=== PATIENT | female | born 1970 | race Caucasian/White ===

== ENCOUNTER 2020-09-15 14:40 | Inpatient (IN) | payer OTHER ==
[~2020-09-15] VITALS: Ht 160 cm; Wt 62.7 kg
[~2020-09-15 14:40] MED LIST: ATARAX25 MG PO; DIAZEPAM 5MG TAB5 MG PO; PROZAC20 MG PO; SYNTHROID50 MC1 PO
[2020-09-15 15:38] LABS: BASOPHIL 0.4 % (0-2); EOSINOPHIL 0.2 % (0-5); HCT 44.5 % (37.0-47.0); LYMPHOCYTE 7.8 % (15-48); MCH 32.1 pg (25.0-31.0); MCV 89.2 fL (78.0-100.0); MONOCYTE 6.4 % (0-12); MPV 10.4 fL (6.0-9.5); NEUTROPHIL 84.9 % (41-80); NRBC 0; PLT 283 K/uL (150-400); RBC 4.99 M/uL (4.20-5.40); RDW 13.2 % (11.5-14.0); WBC 10.6 K/uL (4.0-10.5)
[2020-09-15 15:38] LABS: BILIRUBIN NEGATIVE (NEGATIVE); BLOOD NEGATIVE Ery/uL (NEGATIVE); CLARITY CLEAR (CLEAR); COLOR YELLOW (YELLOW); GLUCOSE (U) 3+ mg/dL (NORMAL); LEUKOCYTES NEGATIVE Leu/uL (NEGATIVE); NITRITE NEGATIVE (NEGATIVE); PROTEIN NEGATIVE (NEGATIVE); UROBILINOGEN 0.2 mg/dL (0.2-1.0)
[2020-09-15 15:47] LABS: ALBUMIN 4.3 g/dL (3.4-5.0); ALKALINE PHOSHATASE 159 U/L (46-116); ALT 35 U/L (14-59); AMYLASE 287 U/L (25-115); AST 26 U/L (15-37); BILIRUBIN - TOTAL 1.3 mg/dL (0.2-1.0); BUN 11 mg/dL (7-18); BUN/CREAT RATIO (CALC) 22.9 RATIO; CHLORIDE 89 mmol/L (98-107); CO2 (BICARBONATE) 21 mmol/L (21-32); CREATININE 0.48 mg/dL (0.51-0.95); GLOBULIN (CALCULATION) 4.2 g/dL; GLUCOSE 425 mg/dL (74-106); LIPASE >2250 U/L (73-393); POTASSIUM 4.3 mmol/L (3.5-5.1); TOTAL PROTEIN 8.5 g/dL (6.4-8.2)
[2020-09-15 19:38] LABS: CORONAVIRUS 2019 SARS-COV-2 NEGATIVE (NEGATIVE); INFLUENZA A NAA NEGATIVE (NEGATIVE)
[2020-09-15] MEDS ORDERED: PROZAC20 MG PO (20:57)
[2020-09-15] MEDS ORDERED: SYNTHROID50 MCG PO (20:58)
[2020-09-15] MEDS ORDERED: MVI PO (20:59)
[2020-09-15] MEDS ORDERED: FOLIC ACID1 MG PO (21:00)
[2020-09-15] MEDS ORDERED: VITAMIN B12 PO (21:00)
[2020-09-15] MEDS ORDERED: APPLE CIDER VINEGAR PO (21:01)
[2020-09-16 00:14] LABS: CHOLESTEROL 291 mg/dL (<200); HDL 43 mg/dL (40-60); LDL - DIRECT 228 mg/dL (<100); TRIGLYCERIDES 189 mg/dL (<150)
[2020-09-16 05:46] LABS: BASOPHIL 0.4 % (0-2); EOSINOPHIL 3.7 % (0-5); HCT 36.5 % (37.0-47.0); LYMPHOCYTE 22.2 % (15-48); MCH 32.3 pg (25.0-31.0); MCHC 35.6 g/dL (32.0-36.0); MCV 90.8 fL (78.0-100.0); MONOCYTE 11.4 % (0-12); MPV 10.2 fL (6.0-9.5); NEUTROPHIL 61.9 % (41-80); NRBC 0; PLT 165 K/uL (150-400); RBC 4.02 M/uL (4.20-5.40); RDW 13.3 % (11.5-14.0); WBC 5.2 K/uL (4.0-10.5)
[2020-09-16 06:05] LABS: ALBUMIN 3.2 g/dL (3.4-5.0); BILIRUBIN - TOTAL 0.9 mg/dL (0.2-1.0); BUN/CREAT RATIO (CALC) 26.2 RATIO; CREATININE 0.42 mg/dL (0.51-0.95); GLOBULIN (CALCULATION) 3.3 g/dL; POTASSIUM 3.9 mmol/L (3.5-5.1)
[2020-09-16 06:07] LABS: TOTAL PROTEIN 6.5 g/dL (6.4-8.2)
[2020-09-16 07:37] LABS: AMYLASE 156 U/L (25-115); LIPASE 1000 U/L (73-393)
[2020-09-16] MEDS ORDERED: LIPITOR20 MG PO (17:18)
[2020-09-16] MEDS ORDERED: METFORMIN HCL500 MG PO (17:18)
== END 2020-09-16 18:50 | disposition home or self-care (01) | DRG 439 ==
LOC: FER 14:40 → FMS 19:45
PROVIDERS: Emergency Medicine; Nurse Practitioner; Nurse Practitioner Family; ADMIT Hospitalist
DX: K85.20 Alcohol induced acute pancreatitis without necrosis or infection (principal); E87.1 Hypo-osmolality and hyponatremia; E11.65 Type 2 diabetes mellitus with hyperglycemia; F41.1 Generalized anxiety disorder; F41.0 Panic disorder [episodic paroxysmal anxiety]; F43.10 Post-traumatic stress disorder, unspecified; E03.9 Hypothyroidism, unspecified; F10.11 Alcohol abuse, in remission; Z20.822 Contact with and (suspected) exposure to COVID-19; E86.0 Dehydration; F32.9 Major depressive disorder, single episode, unspecified; F17.210 Nicotine dependence, cigarettes, uncomplicated; Z98.51 Tubal ligation status; Z88.0 Allergy status to penicillin; Z79.899 Other long term (current) drug therapy
CPT/HCPCS: 36415; 80053; 80061; 81003; 82150; 82962; 83036; 83690; 85025; G0480; J1170; J1650; J2405; J3411; J3475; J7030; Q9967; U0002

== ENCOUNTER 2020-12-10 13:38 | Inpatient (IN) | payer OTHER ==
[~2020-12-10] VITALS: Ht 160 cm; Wt 57.8 kg
[~2020-12-10 13:38] MED LIST changes: +APPLE CIDER VINEGAR PO; +FOLIC ACID1 MG PO; +LIPITOR20 MG PO; +METFORMIN HCL500 MG PO; +MVI PO; +SYNTHROID50 MCG PO; +VITAMIN B12 PO
[2020-12-10 14:17] LABS: BASOPHIL 0.2 % (0-2); EOSINOPHIL 0 % (0-5); HCT 42.3 % (37.0-47.0); HGB 15.1 g/dl (12.5-16.0); LYMPHOCYTE 10.2 % (15-48); MCH 32.1 pg (25.0-31.0); MCHC 35.7 g/dL (32.0-36.0); MCV 89.8 fL (78.0-100.0); MONOCYTE 10.6 % (0-12); MPV 9.2 fL (6.0-9.5); NEUTROPHIL 78.8 % (41-80); NRBC 0; PLT 167 K/uL (150-400); RBC 4.71 M/uL (4.20-5.40); RDW 12.3 % (11.5-14.0)
[2020-12-10 14:18] LABS: BILIRUBIN 1+ mg/dL (NEGATIVE); BLOOD 2+ Ery/uL (NEGATIVE); CLARITY CLEAR (CLEAR); COLOR YELLOW (YELLOW); GLUCOSE (U) NORMAL (NORMAL); LEUKOCYTES NEGATIVE Leu/uL (NEGATIVE); NITRITE NEGATIVE (NEGATIVE); PROTEIN 3+ mg/dL (NEGATIVE); SPECIFIC GRAVITY >=1.030 (1.001-1.030); UROBILINOGEN 0.2 mg/dL (0.2-1.0)
[2020-12-10 14:23] LABS: AMPHETAMINES NEGATIVE (NEGATIVE); BARBITURATES NEGATIVE (NEGATIVE); ECSTASY (MDMA) NEGATIVE (NEGATIVE); MARIJUANA (THC) NEGATIVE (NEGATIVE); METHADONE NEGATIVE (NEGATIVE); OPIATES NEGATIVE (NEGATIVE); OXYCODONE NEGATIVE (NEGATIVE)
[2020-12-10 14:33] LABS: URINARY WBC RARE
[2020-12-10 14:53] LABS: ALBUMIN 4.4 g/dL (3.4-5.0); BILIRUBIN - TOTAL 1.4 mg/dL (0.2-1.0); CREATININE 0.48 mg/dL (0.51-0.95); GLOBULIN (CALCULATION) 4.5 g/dL; POTASSIUM 3.7 mmol/L (3.5-5.1); TOTAL PROTEIN 8.9 g/dL (6.4-8.2)
[2020-12-10] MEDS ORDERED: METFORMIN HCL500 M1 PO (17:42)
[2020-12-10] MEDS ORDERED: FLUOXETINE HCL20 MG PO (17:44)
[2020-12-10] MEDS ORDERED: ATORVASTATIN CA20 MG PO (17:47)
[2020-12-10] MEDS ORDERED: FOLIC ACID1 MG PO ×2 (17:49→17:50)
[2020-12-11 06:04] LABS: HCT 35.6 % (37.0-47.0); HGB 12.7 g/dl (12.5-16.0); MCH 32.4 pg (25.0-31.0); MCHC 35.7 g/dL (32.0-36.0); MCV 90.8 fL (78.0-100.0); MPV 9.1 fL (6.0-9.5); RBC 3.92 M/uL (4.20-5.40); RDW 12.5 % (11.5-14.0); WBC 3.7 K/uL (4.0-10.5)
[2020-12-11 06:51] LABS: CREATININE 0.4 mg/dL (0.51-0.95); POTASSIUM 3.4 mmol/L (3.5-5.1)
--- NOTE | 2020-12-11 13:09 | NUR ---
RECEIVED REFERRAL REGARDING PT. ALCHOL CONSUMPTION. MET [facility] PT. SHE STATED THAT SHE CAN NOT DRINK FOR A LONG PERIOD OF TIME, BUT THEN SHE BECOMES ANXIOUS OR UPSET AND STARTS DRINKING AGAIN. SHE HAS BEEN IN GROUP COUNSELING AT [facility] WELL INDIVIDUAL COUNSELING AT [facility]. PT. IS CONSIDERING GOING BACK TO [facility] FOR COUNSELING. PT. DOES NOT LIKE AA. SHE HAS TWO GROWN CHILDREN. HER BOYFRIEND IS SUPPORTIVE. PT. IS EMPLOYED AT A [employer]. SHE STATES THAT SHE NEEDS TO WORK AND CANNOT GO INPATIENT. GAVE INFORMATION REGARDING COUNSELING RESOURCES AND TREATEMENT CENTERS.
[2020-12-12 06:04] LABS: BASOPHIL 0.5 % (0-2); EOSINOPHIL 2.4 % (0-5); HCT 32.6 % (37.0-47.0); HGB 11.9 g/dl (12.5-16.0); LYMPHOCYTE 30.3 % (15-48); MCH 32.7 pg (25.0-31.0); MCHC 36.5 g/dL (32.0-36.0); MCV 89.6 fL (78.0-100.0); MONOCYTE 15.6 % (0-12); MPV 9.8 fL (6.0-9.5); NEUTROPHIL 51.2 % (41-80); NRBC 0; RBC 3.64 M/uL (4.20-5.40); RDW 12.3 % (11.5-14.0); WBC 2.1 K/uL (4.0-10.5)
[2020-12-12 06:16] LABS: PLT 95 K/uL (150-400)
[2020-12-12 06:47] LABS: CREATININE 0.45 mg/dL (0.51-0.95); POTASSIUM 3.6 mmol/L (3.5-5.1)
[2020-12-12 06:48] LABS: ALBUMIN 2.9 g/dL (3.4-5.0); BILIRUBIN - TOTAL 0.8 mg/dL (0.2-1.0); GLOBULIN (CALCULATION) 3.5 g/dL; TOTAL PROTEIN 6.4 g/dL (6.4-8.2)
[2020-12-12 06:49] LABS: PHOSPHORUS 1.9 mg/dL (2.6-4.7)
[2020-12-12 06:50] LABS: MAGNESIUM 1.9 mg/dL (1.8-2.4)
== END 2020-12-12 14:45 | disposition home or self-care (01) | DRG 439 ==
LOC: FER 13:38 → FMS 15:06
PROVIDERS: Emergency Medicine; Internal Medicine; ADMIT Hospitalist
PROC: HZ2ZZZZ Detoxification Services for Substance Abuse Treatment (ICD-10-PCS; principal; 2020-12-11)
DX: K85.20 Alcohol induced acute pancreatitis without necrosis or infection (principal); D61.818 Other pancytopenia; F10.20 Alcohol dependence, uncomplicated; F41.1 Generalized anxiety disorder; E87.6 Hypokalemia; E83.39 Other disorders of phosphorus metabolism; F43.10 Post-traumatic stress disorder, unspecified; F32.9 Major depressive disorder, single episode, unspecified; E03.9 Hypothyroidism, unspecified; F17.210 Nicotine dependence, cigarettes, uncomplicated; Z20.822 Contact with and (suspected) exposure to COVID-19; E11.9 Type 2 diabetes mellitus without complications; Z88.0 Allergy status to penicillin; Z98.51 Tubal ligation status; Z98.890 Other specified postprocedural states; Y90.1 Blood alcohol level of 20-39 mg/100 ml
CPT/HCPCS: 36415; 80048; 80053; 80305; 81001; 82150; 82962; 83036; 83605; 83690; 83735; 84100; 85025; C9113; G0480; J1650; J2060; J2270; J2405; J3360; J3411; J3475; J7030; J7040; U0002

== ENCOUNTER 2021-01-24 13:35 | Inpatient (IN) | payer OTHER ==
[~2021-01-24] VITALS: Ht 160 cm; Wt 55.0 kg
[~2021-01-24 13:35] MED LIST changes: +ATORVASTATIN CA20 MG PO; +FLUOXETINE HCL20 MG PO; +METFORMIN HCL500 M1 PO
[2021-01-24 14:59] LABS: CORONAVIRUS 2019 SARS-COV-2 NEGATIVE (NEGATIVE); INFLUENZA A NAA NEGATIVE (NEGATIVE)
[2021-01-24 15:02] LABS: BASOPHIL 0.5 % (0-2); EOSINOPHIL 1.2 % (0-5); HCT 44.1 % (37.0-47.0); LYMPHOCYTE 12.2 % (15-48); MCHC 36.3 g/dL (32.0-36.0); MCV 88.2 fL (78.0-100.0); MONOCYTE 6.4 % (0-12); MPV 10.5 fL (6.0-9.5); NEUTROPHIL 79.2 % (41-80); NRBC 0; PLT 292 K/uL (150-400); RDW 12.9 % (11.5-14.0); WBC 7.3 K/uL (4.0-10.5)
[2021-01-24 15:22] LABS: IRON % SATURATION 17.5 %SAT (20-50)
[2021-01-24 15:25] LABS: ALBUMIN 4.2 g/dL (3.4-5.0); BILIRUBIN - TOTAL 0.7 mg/dL (0.2-1.0); BUN/CREAT RATIO (CALC) 21.6 RATIO; CREATININE 0.51 mg/dL (0.51-0.95); GLOBULIN (CALCULATION) 4.5 g/dL; MAGNESIUM 1.9 mg/dL (1.8-2.4); POTASSIUM 3.8 mmol/L (3.5-5.1); TOTAL PROTEIN 8.7 g/dL (6.4-8.2)
[2021-01-24 15:26] LABS: LACTIC ACID 1.1 mmol/L (0.4-1.9); PRO-BNP 22 pg/mL (<125)
[2021-01-24 16:13] LABS: BILIRUBIN 1+ mg/dL (NEGATIVE); BLOOD TRACE-INTACT Ery/uL (NEGATIVE); CLARITY CLEAR (CLEAR); COLOR YELLOW (YELLOW); GLUCOSE (U) 2+ mg/dL (NORMAL); LEUKOCYTES NEGATIVE Leu/uL (NEGATIVE); NITRITE NEGATIVE (NEGATIVE); PROTEIN 2+ mg/dL (NEGATIVE); SPECIFIC GRAVITY >=1.030 (1.001-1.030); UROBILINOGEN 0.2 mg/dL (0.2-1.0)
[2021-01-24 16:29] LABS: BACTERIA TRACE; URINARY RBC RARE; URINARY WBC RARE
--- NOTE | 2021-01-24 18:46 | NUR ---
PATEINT ADMITTED VIA STRETCHER FROM ER. REPORT FROM CANDY.
[2021-01-24] MEDS ORDERED: B12 ACTIVE1000 MCG PO (18:52)
[2021-01-24] MEDS ORDERED: 3IN1 COMMODE (18:52)
[2021-01-24 20:44] LABS: BUN/CREAT RATIO (CALC) 14.9 RATIO; CREATININE 0.47 mg/dL (0.51-0.95)
[2021-01-25 02:13] LABS: BASOPHIL 0.8 % (0-2); EOSINOPHIL 2.2 % (0-5); HCT 34.5 % (37.0-47.0); HGB 12.5 g/dl (12.5-16.0); LYMPHOCYTE 21.4 % (15-48); MCH 31.9 pg (25.0-31.0); MCHC 36.2 g/dL (32.0-36.0); MONOCYTE 9.6 % (0-12); MPV 9.6 fL (6.0-9.5); NEUTROPHIL 65.6 % (41-80); NRBC 0; PLT 171 K/uL (150-400); RBC 3.92 M/uL (4.20-5.40); RDW 13.1 % (11.5-14.0); WBC 5.1 K/uL (4.0-10.5)
[2021-01-25 02:26] LABS: PHOSPHORUS 1.7 mg/dL (2.6-4.7)
[2021-01-25 02:28] LABS: BUN/CREAT RATIO (CALC) 11.6 RATIO; CREATININE 0.43 mg/dL (0.51-0.95); MAGNESIUM 1.3 mg/dL (1.8-2.4); POTASSIUM 3.6 mmol/L (3.5-5.1)
[2021-01-25 08:11] LABS: BUN/CREAT RATIO (CALC) 10.3 RATIO; CREATININE 0.39 mg/dL (0.51-0.95); POTASSIUM 3.3 mmol/L (3.5-5.1)
[2021-01-25 15:05] LABS: BUN/CREAT RATIO (CALC) 6.4 RATIO; CREATININE 0.47 mg/dL (0.51-0.95); POTASSIUM 3.8 mmol/L (3.5-5.1)
--- NOTE | 2021-01-25 18:21 | NUR ---
PT CONTINUES TO EAT FOOD FROM [facility] BROUGHT IN BY FAMILY. PT EDUCATED ON RESTRICED DIET TO GET GLUCOSE WITHIN NORMAL LIMITS AND TO GET TAKEN OFF THE INSULIN DRIP
[2021-01-25 20:58] LABS: BUN/CREAT RATIO (CALC) 4.2 RATIO; CREATININE 0.72 mg/dL (0.51-0.95); POTASSIUM 3.4 mmol/L (3.5-5.1)
[2021-01-26 05:09] LABS: BASOPHIL 0.9 % (0-2); HCT 32.5 % (37.0-47.0); HGB 11.6 g/dl (12.5-16.0); LYMPHOCYTE 26.9 % (15-48); MCH 31.8 pg (25.0-31.0); MCHC 35.7 g/dL (32.0-36.0); MONOCYTE 6.6 % (0-12); MPV 10.2 fL (6.0-9.5); NRBC 0; PLT 143 K/uL (150-400); RBC 3.65 M/uL (4.20-5.40); RDW 13.2 % (11.5-14.0); WBC 3.4 K/uL (4.0-10.5)
[2021-01-26 05:29] LABS: ALBUMIN 2.5 g/dL (3.4-5.0); BUN/CREAT RATIO (CALC) 7.3 RATIO; CREATININE 0.41 mg/dL (0.51-0.95); MAGNESIUM 1.4 mg/dL (1.8-2.4); PHOSPHORUS 3.2 mg/dL (2.6-4.7); POTASSIUM 3.4 mmol/L (3.5-5.1)
[2021-01-26] MEDS ORDERED: METFORMIN HCL1000 M1 PO (16:04)
--- NOTE | 2021-01-26 17:22 | NUR ---
01/26/21 Patient was provided with informatin of diabetic teaching in the community.
--- NOTE | 2021-01-26 21:47 | NUR ---
NIGHTSHIFT RN ON 01/26 GAVE ALL NIGHTTIME MEDS DUE BUT SYSTEM KICKED NURSE OUT AFTER CLICKING SUBMIT. NURSE CALLED IT TO FIX, BUT IS STILL UNABLE TO DOCUMENT THAT MEDS WERE GIVEN
[2021-01-27 04:52] LABS: BUN/CREAT RATIO (CALC) 9.4 RATIO; CREATININE 0.53 mg/dL (0.51-0.95); MAGNESIUM 1.8 mg/dL (1.8-2.4); POTASSIUM 4.2 mmol/L (3.5-5.1)
[2021-01-27] MEDS ORDERED: LANTUS SOL100 UNIT/1 SC (07:55)
[2021-01-27] MEDS ORDERED: PEN NEEDLE1 EAC1 SC (10:38)
[2021-01-27] MEDS ORDERED: LANTUS **100 UNITS/ SC ×2 (10:38→10:39)
== END 2021-01-27 13:02 | disposition home or self-care (01) | DRG 637 ==
LOC: FER 13:35 → FICU 16:41 → FMS 01-26 18:30 → FICU 01-26 18:30 → FMS 01-27 13:02
PROVIDERS: Emergency Medicine; ADMIT Allergy & Immunology Allergy
DX: E10.10 Type 1 diabetes mellitus with ketoacidosis without coma (principal); K85.80 Other acute pancreatitis without necrosis or infection; Z20.822 Contact with and (suspected) exposure to COVID-19; F10.21 Alcohol dependence, in remission; G40.909 Epilepsy, unspecified, not intractable, without status epilepticus; F41.1 Generalized anxiety disorder; F32.9 Major depressive disorder, single episode, unspecified; E03.9 Hypothyroidism, unspecified; K76.0 Fatty (change of) liver, not elsewhere classified; Z88.0 Allergy status to penicillin; Z98.51 Tubal ligation status; Z98.890 Other specified postprocedural states
CPT/HCPCS: 36415; 36600; 71045; 80048; 80053; 80061; 80069; 81001; 82009; 82803; 82962; 83036; 83540; 83550; 83605; 83690; 83735; 83880; 84100; 84145; 84443; 84484; 84681; 85025; 93005; C9113; G0480; J1170; J1650; J2270; J2405; J3475; J3480; J7030; J7040; J7120; J7121; Q9967; U0002

== ENCOUNTER 2021-04-30 09:41 | Inpatient (IN) | payer OTHER ==
[~2021-04-30] VITALS: Ht 160 cm; Wt 57.2 kg
[~2021-04-30 09:41] MED LIST changes: +3IN1 COMMODE; +B12 ACTIVE1000 MCG PO; +LANTUS **100 UNITS/ SC; +LANTUS SOL100 UNIT/1 SC; +METFORMIN HCL1000 M1 PO; +PEN NEEDLE1 EAC1 SC
[2021-04-30 10:34] LABS: BASOPHIL 0.5 % (0-2); EOSINOPHIL 0.1 % (0-5); HCT 46.9 % (37.0-47.0); HGB 16.3 g/dl (12.5-16.0); LYMPHOCYTE 9.6 % (15-48); MCH 32.2 pg (25.0-31.0); MCHC 34.8 g/dL (32.0-36.0); MCV 92.7 fL (78.0-100.0); MONOCYTE 7.5 % (0-12); NEUTROPHIL 81.4 % (41-80); NRBC 0; PLT 271 K/uL (150-400); RBC 5.06 M/uL (4.20-5.40); RDW 12.3 % (11.5-14.0); WBC 7.6 K/uL (4.0-10.5)
[2021-04-30 10:54] LABS: ALBUMIN 4.5 g/dL (3.4-5.0); ALKALINE PHOSHATASE 251 U/L (46-116); ALT 94 U/L (14-59); AST 109 U/L (15-37); BILIRUBIN - TOTAL 0.8 mg/dL (0.2-1.0); BUN 17 mg/dL (7-18); BUN/CREAT RATIO (CALC) 21.2 RATIO; CO2 (BICARBONATE) 8 mmol/L (21-32); GLUCOSE 441 mg/dL (74-106); TOTAL PROTEIN 9.5 g/dL (6.4-8.2)
[2021-04-30 11:14] LABS: CORONAVIRUS 2019 SARS-COV-2 NEGATIVE (NEGATIVE); INFLUENZA A NAA NEGATIVE (NEGATIVE)
[2021-04-30 11:15] LABS: CHLORIDE 85 mmol/L (98-107); POTASSIUM 3.8 mmol/L (3.5-5.1)
[2021-04-30 13:36] LABS: BILIRUBIN 2+ mg/dL (NEGATIVE); BLOOD 2+ Ery/uL (NEGATIVE); CLARITY CLEAR (CLEAR); COLOR YELLOW (YELLOW); GLUCOSE (U) 3+ mg/dL (NORMAL); LEUKOCYTES NEGATIVE Leu/uL (NEGATIVE); NITRITE NEGATIVE (NEGATIVE); PROTEIN 2+ mg/dL (NEGATIVE); SPECIFIC GRAVITY >=1.030 (1.001-1.030); UROBILINOGEN 0.2 mg/dL (0.2-1.0); pH 5.5 (5.0-9.0)
[2021-04-30 13:42] LABS: BACTERIA TRACE; MUCOUS TRACE
[2021-04-30 14:38] LABS: BUN/CREAT RATIO (CALC) 23.6 RATIO; CREATININE 0.55 mg/dL (0.51-0.95); MAGNESIUM 1.7 mg/dL (1.8-2.4); POTASSIUM 3.3 mmol/L (3.5-5.1)
[2021-04-30 18:43] LABS: BUN/CREAT RATIO (CALC) 19.6 RATIO; CREATININE 0.51 mg/dL (0.51-0.95); POTASSIUM 3.5 mmol/L (3.5-5.1)
[2021-04-30 22:58] LABS: BUN/CREAT RATIO (CALC) 14.6 RATIO; CREATININE 0.48 mg/dL (0.51-0.95); POTASSIUM 3.3 mmol/L (3.5-5.1)
[2021-05-01 05:58] LABS: BASOPHIL 0.6 % (0-2); EOSINOPHIL 1.6 % (0-5); HCT 33.4 % (37.0-47.0); HGB 11.9 g/dl (12.5-16.0); LYMPHOCYTE 28.6 % (15-48); MCHC 35.6 g/dL (32.0-36.0); MCV 89.8 fL (78.0-100.0); NEUTROPHIL 59.9 % (41-80); NRBC 0; PLT 127 K/uL (150-400); RBC 3.72 M/uL (4.20-5.40); RDW 12.4 % (11.5-14.0); WBC 3.1 K/uL (4.0-10.5)
[2021-05-01 06:24] LABS: BUN/CREAT RATIO (CALC) 9.1 RATIO; CREATININE 0.44 mg/dL (0.51-0.95); MAGNESIUM 1.7 mg/dL (1.8-2.4); POTASSIUM 3.4 mmol/L (3.5-5.1)
[2021-05-01 06:55] LABS: PHOSPHORUS 0.9 mg/dL (2.6-4.7)
[2021-05-02 05:51] LABS: HCT 37.4 % (37.0-47.0); HGB 13.4 g/dl (12.5-16.0); MCH 32.4 pg (25.0-31.0); MCHC 35.8 g/dL (32.0-36.0); MCV 90.3 fL (78.0-100.0); MPV 9.6 fL (6.0-9.5); RBC 4.14 M/uL (4.20-5.40); RDW 12.5 % (11.5-14.0)
[2021-05-02 06:02] LABS: BUN/CREAT RATIO (CALC) 4.9 RATIO; CREATININE 0.41 mg/dL (0.51-0.95); POTASSIUM 3.3 mmol/L (3.5-5.1)
[2021-05-03 06:21] LABS: HCT 34.6 % (37.0-47.0); HGB 12.2 g/dl (12.5-16.0); MCH 32.4 pg (25.0-31.0); MCHC 35.3 g/dL (32.0-36.0); MCV 91.8 fL (78.0-100.0); MPV 10.2 fL (6.0-9.5); RBC 3.77 M/uL (4.20-5.40); RDW 12.6 % (11.5-14.0); WBC 3.6 K/uL (4.0-10.5)
[2021-05-03 07:00] LABS: BUN/CREAT RATIO (CALC) 3.9 RATIO; CREATININE 0.51 mg/dL (0.51-0.95)
== END 2021-05-03 13:35 | disposition home or self-care (01) | DRG 639 ==
LOC: FER 09:41 → FICU 12:06 → FMS 05-02 08:13
PROVIDERS: Emergency Medicine; Hospitalist; ADMIT Internal Medicine
DX: E11.10 Type 2 diabetes mellitus with ketoacidosis without coma (principal); F10.10 Alcohol abuse, uncomplicated; E87.6 Hypokalemia; E03.9 Hypothyroidism, unspecified; E78.5 Hyperlipidemia, unspecified; Z20.822 Contact with and (suspected) exposure to COVID-19; F41.1 Generalized anxiety disorder; F32.A Depression, unspecified; K76.0 Fatty (change of) liver, not elsewhere classified; R63.4 Abnormal weight loss; Z91.14 Patient's other noncompliance with medication regimen; Z88.0 Allergy status to penicillin; Z98.51 Tubal ligation status; Z98.890 Other specified postprocedural states; Z79.4 Long term (current) use of insulin; Z79.890 Hormone replacement therapy; Z87.891 Personal history of nicotine dependence; Z68.20 Body mass index [BMI] 20.0-20.9, adult
CPT/HCPCS: 36415; 36600; 71045; 80048; 80053; 81001; 82009; 82803; 82962; 83036; 83690; 83735; 84100; 84443; 84484; 85025; G0480; J1650; J1815; J1885; J2270; J2405; J3475; J3480; J7030; U0002

== ENCOUNTER 2021-12-12 20:38 | Emergency (ER) | payer OTHER ==
[2021-12-12 22:10] LABS: BASOPHIL 1.4 % (0-2); EOSINOPHIL 2.2 % (0-5); HCT 37.5 % (37.0-47.0); HGB 12.8 g/dl (12.5-16.0); MCH 31.2 pg (25.0-31.0); MCHC 34.1 g/dL (32.0-36.0); MCV 91.5 fL (78.0-100.0); MONOCYTE 8.6 % (0-12); MPV 9.9 fL (6.0-9.5); NEUTROPHIL 58.6 % (41-80); NRBC 0; PLT 291 K/uL (150-400); RDW 13.7 % (11.5-14.0); WBC 6.3 K/uL (4.0-10.5)
[2021-12-12 22:11] LABS: BILIRUBIN NEGATIVE (NEGATIVE); BLOOD NEGATIVE Ery/uL (NEGATIVE); CLARITY CLEAR (CLEAR); COLOR YELLOW (YELLOW); GLUCOSE (U) NORMAL (NORMAL); LEUKOCYTES TRACE Leu/uL (NEGATIVE); NITRITE NEGATIVE (NEGATIVE); PROTEIN NEGATIVE (NEGATIVE); SPECIFIC GRAVITY <=1.005 (1.001-1.030); UROBILINOGEN 0.2 mg/dL (0.2-1.0)
[2021-12-12 22:16] LABS: AMPHETAMINES NEGATIVE (NEGATIVE); BARBITURATES NEGATIVE (NEGATIVE); ECSTASY (MDMA) NEGATIVE (NEGATIVE); MARIJUANA (THC) NEGATIVE (NEGATIVE); METHADONE NEGATIVE (NEGATIVE); OPIATES NEGATIVE (NEGATIVE); OXYCODONE NEGATIVE (NEGATIVE)
[2021-12-12 22:18] LABS: URINARY WBC RARE
[2021-12-12 22:34] LABS: ALBUMIN 3.8 g/dL (3.4-5.0); BILIRUBIN - TOTAL 0.2 mg/dL (0.2-1.0); BUN/CREAT RATIO (CALC) 21.7 RATIO; CREATININE 0.6 mg/dL (0.51-0.95); GLOBULIN (CALCULATION) 3.7 g/dL; POTASSIUM 3.7 mmol/L (3.5-5.1); TOTAL PROTEIN 7.5 g/dL (6.4-8.2)
[2021-12-13 00:40] LABS: CORONAVIRUS 2019 SARS-COV-2 NEGATIVE (NEGATIVE); INFLUENZA A NAA NEGATIVE (NEGATIVE)
[2021-12-13] MEDS ORDERED: INSULIN GL100 UNIT/3 SC (01:10)
[2021-12-13] MEDS ORDERED: DIFLUCAN 100MG100 MG PO (01:10)
== END 2021-12-13 01:00 | disposition home or self-care (01) ==
LOC: FER 20:38
PROVIDERS: Emergency Medicine
DX: E11.65 Type 2 diabetes mellitus with hyperglycemia (principal); R07.89 Other chest pain; R05.9 Cough, unspecified; F17.200 Nicotine dependence, unspecified, uncomplicated; Z20.822 Contact with and (suspected) exposure to COVID-19; Z28.310 Unvaccinated for COVID-19; Z88.0 Allergy status to penicillin; Z79.84 Long term (current) use of oral hypoglycemic drugs
CPT/HCPCS: 36415; 71045; 80053; 80305; 81001; 83690; 84484; 85025; 85379; 93005; J0780; J1200; J1885; J7030; U0002

== ENCOUNTER 2021-12-29 00:03 | Emergency (ER) | payer OTHER ==
[~2021-12-29 00:03] MED LIST changes: +DIFLUCAN 100MG100 MG PO; +INSULIN GL100 UNIT/3 SC
[2021-12-29 00:47] LABS: BASOPHIL 0.5 % (0-2); EOSINOPHIL 1.7 % (0-5); HCT 41.2 % (37.0-47.0); HGB 14.2 g/dl (12.5-16.0); LYMPHOCYTE 11.1 % (15-48); MCH 31.3 pg (25.0-31.0); MCHC 34.5 g/dL (32.0-36.0); MCV 90.9 fL (78.0-100.0); MONOCYTE 7.3 % (0-12); MPV 10.4 fL (6.0-9.5); NEUTROPHIL 78.9 % (41-80); NRBC 0; PLT 257 K/uL (150-400); RBC 4.53 M/uL (4.20-5.40); RDW 13.3 % (11.5-14.0); WBC 12.2 K/uL (4.0-10.5)
[2021-12-29 00:50] LABS: BILIRUBIN NEGATIVE (NEGATIVE); BLOOD NEGATIVE Ery/uL (NEGATIVE); CLARITY CLEAR (CLEAR); COLOR YELLOW (YELLOW); GLUCOSE (U) TRACE mg/dL (NORMAL); LEUKOCYTES NEGATIVE Leu/uL (NEGATIVE); NITRITE NEGATIVE (NEGATIVE); PROTEIN NEGATIVE (NEGATIVE); SPECIFIC GRAVITY 1.015 (1.001-1.030); UROBILINOGEN 0.2 mg/dL (0.2-1.0)
[2021-12-29 01:12] LABS: ALBUMIN 4.3 g/dL (3.4-5.0); BILIRUBIN - TOTAL 0.5 mg/dL (0.2-1.0); BUN/CREAT RATIO (CALC) 29.1 RATIO; CREATININE 0.55 mg/dL (0.51-0.95); GLOBULIN (CALCULATION) 3.5 g/dL; POTASSIUM 4.2 mmol/L (3.5-5.1); TOTAL PROTEIN 7.8 g/dL (6.4-8.2)
[2021-12-29] MEDS ORDERED: RIZATRIPTAN10 M1 SL (02:32)
[2021-12-29] MEDS ORDERED: REGLAN10 MG PO (02:32)
[2021-12-29] MEDS ORDERED: NAPROXEN500 MG PO (02:32)
== END 2021-12-29 03:09 | disposition home or self-care (01) ==
LOC: FER 00:03
PROVIDERS: Internal Medicine
DX: E11.65 Type 2 diabetes mellitus with hyperglycemia (principal); R51.9 Headache, unspecified; F17.210 Nicotine dependence, cigarettes, uncomplicated; Z88.0 Allergy status to penicillin; Z79.4 Long term (current) use of insulin; Z79.84 Long term (current) use of oral hypoglycemic drugs; Z28.310 Unvaccinated for COVID-19
CPT/HCPCS: 36415; 80053; 81003; 82009; 84145; 84484; 85025; 93005; 96372; J1885; J2765; J3030; J3475; J7030

== ENCOUNTER 2022-03-03 17:12 | Inpatient (IN) | payer OTHER ==
[~2022-03-03] VITALS: Ht 160 cm; Wt 63.1 kg
[~2022-03-03 17:12] MED LIST changes: +NAPROXEN500 MG PO; +REGLAN10 MG PO; +RIZATRIPTAN10 M1 SL
[2022-03-03 17:52] LABS: BASOPHIL 0.3 % (0-2); EOSINOPHIL 0 % (0-5); HCT 46.2 % (37.0-47.0); HGB 15.8 g/dl (12.5-16.0); LYMPHOCYTE 4.8 % (15-48); MCH 30.7 pg (25.0-31.0); MCHC 34.2 g/dL (32.0-36.0); MCV 89.9 fL (78.0-100.0); MONOCYTE 5.2 % (0-12); MPV 9.6 fL (6.0-9.5); NRBC 0; PLT 359 K/uL (150-400); RBC 5.14 M/uL (4.20-5.40); RDW 12.5 % (11.5-14.0)
[2022-03-03 18:07] LABS: ALBUMIN 4.3 g/dL (3.4-5.0); ALKALINE PHOSHATASE 195 U/L (46-116); ALT 25 U/L (14-59); AST 19 U/L (15-37); BILIRUBIN - TOTAL 0.7 mg/dL (0.2-1.0); BUN 24 mg/dL (7-18); BUN/CREAT RATIO (CALC) 27.6 RATIO; CHLORIDE 83 mmol/L (98-107); CREATININE 0.87 mg/dL (0.51-0.95); GLOBULIN (CALCULATION) 4.8 g/dL; POTASSIUM 4.3 mmol/L (3.5-5.1); TOTAL PROTEIN 9.1 g/dL (6.4-8.2)
[2022-03-03 18:08] LABS: GLUCOSE 522 mg/dL (74-106)
[2022-03-03 18:09] LABS: CO2 (BICARBONATE) < 5 mmol/L (21-32)
[2022-03-03 18:30] LABS: CORONAVIRUS 2019 SARS-COV-2 NEGATIVE (NEGATIVE); INFLUENZA A NAA NEGATIVE (NEGATIVE)
[2022-03-03 19:17] LABS: INR 1.08 (0.9-1.2); PROTHROMBIN TIME 13.7 SECONDS (11.9-13.9); PTT 26.9 SECONDS (24.9-34.6)
[2022-03-03 20:21] LABS: BILIRUBIN 2+ mg/dL (NEGATIVE); BLOOD 2+ Ery/uL (NEGATIVE); CLARITY CLEAR (CLEAR); COLOR YELLOW (YELLOW); GLUCOSE (U) 3+ mg/dL (NORMAL); LEUKOCYTES NEGATIVE Leu/uL (NEGATIVE); NITRITE NEGATIVE (NEGATIVE); PROTEIN 2+ mg/dL (NEGATIVE); SPECIFIC GRAVITY 1.025 (1.001-1.030); UROBILINOGEN 0.2 mg/dL (0.2-1.0); pH 5.5 (5.0-9.0)
[2022-03-03 20:27] LABS: BACTERIA TRACE; URINARY WBC RARE
[2022-03-03 22:39] LABS: BUN/CREAT RATIO (CALC) 29.9 RATIO; CREATININE 0.67 mg/dL (0.51-0.95); POTASSIUM 4.3 mmol/L (3.5-5.1)
[2022-03-04 04:37] LABS: BUN/CREAT RATIO (CALC) 26.4 RATIO; CREATININE 0.53 mg/dL (0.51-0.95); POTASSIUM 4.3 mmol/L (3.5-5.1)
[2022-03-04 10:39] LABS: CREATININE 0.5 mg/dL (0.51-0.95); POTASSIUM 3.8 mmol/L (3.5-5.1)
[2022-03-04 16:29] LABS: CREATININE 0.5 mg/dL (0.51-0.95)
[2022-03-04 22:43] LABS: CREATININE 0.5 mg/dL (0.51-0.95); POTASSIUM 3.6 mmol/L (3.5-5.1)
[2022-03-05 04:11] LABS: HCT 31.6 % (37.0-47.0); HGB 11.2 g/dl (12.5-16.0); MCH 30.4 pg (25.0-31.0); MCHC 35.4 g/dL (32.0-36.0); MCV 85.9 fL (78.0-100.0); MPV 9.7 fL (6.0-9.5); RBC 3.68 M/uL (4.20-5.40); RDW 12.7 % (11.5-14.0); WBC 2.8 K/uL (4.0-10.5)
[2022-03-05 04:24] LABS: BUN/CREAT RATIO (CALC) 8.7 RATIO; CREATININE 0.46 mg/dL (0.51-0.95); POTASSIUM 3.5 mmol/L (3.5-5.1)
[2022-03-05 11:13] LABS: BASOPHIL 0.3 % (0-2); EOSINOPHIL 1.3 % (0-5); HCT 30.8 % (37.0-47.0); HGB 11.1 g/dl (12.5-16.0); LYMPHOCYTE 34.7 % (15-48); MCH 30.7 pg (25.0-31.0); MCV 85.1 fL (78.0-100.0); MONOCYTE 12.1 % (0-12); MPV 9.5 fL (6.0-9.5); NRBC 0; PLT 149 K/uL (150-400); RBC 3.62 M/uL (4.20-5.40); RDW 12.9 % (11.5-14.0); WBC 3.1 K/uL (4.0-10.5)
[2022-03-05 11:32] LABS: ALBUMIN 2.8 g/dL (3.4-5.0); BILIRUBIN - TOTAL 0.5 mg/dL (0.2-1.0); BUN/CREAT RATIO (CALC) 8.2 RATIO; CREATININE 0.49 mg/dL (0.51-0.95); GLOBULIN (CALCULATION) 3.2 g/dL; POTASSIUM 3.4 mmol/L (3.5-5.1)
[2022-03-05 11:56] LABS: EOSINOPHIL(M) 1 % (0-5); LYMPHOCYTE(M) 28 % (15-48); MONOCYTE(M) 11 % (0-12); NEUTROPHILS(M) 58 % (41-80); TOTAL CELL COUNT 100; VARIANT LYMPHOCYTE 2
[2022-03-05 11:58] LABS: PLATELET ESTIMATE NORMAL; PLATELET MORPHOLOGY NORMAL
--- NOTE | 2022-03-05 16:43 | NUR ---
03/05/22 Ms. Rios shares a home with her BF. She is independent in the home and community. No discharge planning needs are anticipated.
--- NOTE | 2022-03-06 11:16 | NUR ---
[address] PARRA IF HE WANTED PT ON [facility]. IF NOT WOULD HE D/C ORDER.
[2022-03-06] MEDS ORDERED: VIBRAMYCIN100 MG PO (12:02)
[2022-03-06] MEDS ORDERED: HUMULIN R100 UNIT/2 SC (12:02)
== END 2022-03-06 13:27 | disposition home or self-care (01) | DRG 637 ==
LOC: FER 17:12 → FICU 03-04 00:30 → FMS 03-04 00:30 → FICU 03-04 01:10 → FMS 03-05 09:57
PROVIDERS: Emergency Medicine; Nurse Practitioner Acute Care; ADMIT Internal Medicine
PROC: HZ2ZZZZ Detoxification Services for Substance Abuse Treatment (ICD-10-PCS; principal; 2022-03-04)
DX: E11.10 Type 2 diabetes mellitus with ketoacidosis without coma (principal); N15.1 Renal and perinephric abscess; N17.9 Acute kidney failure, unspecified; D61.818 Other pancytopenia; E87.1 Hypo-osmolality and hyponatremia; L02.31 Cutaneous abscess of buttock; F10.239 Alcohol dependence with withdrawal, unspecified; K20.90 Esophagitis, unspecified without bleeding; B95.5 Unspecified streptococcus as the cause of diseases classified elsewhere; D72.819 Decreased white blood cell count, unspecified; Z20.822 Contact with and (suspected) exposure to COVID-19; E11.65 Type 2 diabetes mellitus with hyperglycemia; F41.1 Generalized anxiety disorder; F32.A Depression, unspecified; E03.9 Hypothyroidism, unspecified; Z98.51 Tubal ligation status; F17.210 Nicotine dependence, cigarettes, uncomplicated; Z88.0 Allergy status to penicillin; Z82.49 Family history of ischemic heart disease and other diseases of the circulatory system; Z79.4 Long term (current) use of insulin; B37.3 Candidiasis of vulva and vagina; Z28.310 Unvaccinated for COVID-19
CPT/HCPCS: 36415; 36600; 71045; 71275; 80048; 80053; 81001; 82803; 82962; 83036; 83605; 83880; 84145; 84443; 84484; 85025; 85379; 85610; 85730; 87040; 87070; 87077; 87088; 87186; 87205; 93005; 94010; 94760; C9113; G0480; J1650; J1815; J2405; J3480; J7030; J7050; Q9967; U0002